=== PATIENT | female | born 1960 | race Caucasian/White ===

== ENCOUNTER 2018-09-05 10:38 | Emergency (ER) | payer BC ==
[2018-09-05 12:33] VITALS: BP 102/63
--- NOTE | 2018-09-05 12:39 | UC ---
Shoulder Pain HPI - HPI Summary HPI Summary: Pt presents with left shoulder pain. States yesterday at work was walking across beam, left hand extended over head holding overhead - slipped - states left shoulder dislocated - he reduced. Pt with persistent pain since. Pt with h/ o left shoulder dislocation. Discomfort since. no paresthesia. no weakness motrin yesterdy RHD Medications reviewed - History of Current Complaint Chief Complaint: UCUpperExtremity Stated Complaint: LT ARM SHOULDER INJURY Time Seen by Provider: 09/05/18 12:39 Hx Obtained From: Patient Pain Intensity: 10 - Allergies/Home Medications Allergies/Adverse Reactions: Allergies Allergy/AdvReac Type Severity Reaction Status Date / Time latex Allergy Unknown LOCAL RASH Verified 09/05/18 12:22 Penicillins Allergy Unknown Swelling Verified 09/05/18 12:22 Sulfa (Sulfonamide Allergy Unknown SWELLING Verified 09/05/18 12:22 Antibiotics) OF FACE LIPS AND TROAT clindamycin Allergy SWELLING Verified 09/05/18 12:22 OF FACE, LIPS AND THROAT enviromental Allergy Unknown Uncoded 09/05/18 12:22 Reaction Details Home Medications: Home Medications Atorvastatin* [Lipitor*] 10 mg PO DAILY 09/05/18 [History Confirmed 09/05/18] Canagliflozin (NF) [Invokana (NF)] 300 mg PO DAILY 09/05/18 [History Confirmed 09/05/18] Insulin GLARGINE(*) [Lantus(*)] 30 units SUBCUT DAILY 09/05/18 [History Confirmed 09/05/18] Levothyroxine TAB* [Synthroid TAB*] 75 mcg PO DAILY 09/05/18 [History Confirmed 09/05/18] Naproxen Sodium [Aleve] 220 mg PO PRN 09/05/18 [History] PMH/Surg Hx/FS Hx/Imm Hx Previously Healthy: Yes Other History Of: Negative For: Anticoagulant Therapy - Surgical History Surgical History: Yes Surgery Procedure, Year, and Place: . ORTHOPEDIC SURGERIES - Family History Known Family History: Positive: Non-Contributory - Social History Occupation: Employed Full-time Lives: With Family Alcohol Use: None Substance Use Type: None Smoking Status (MU): Light Every Day Tobacco Smoker Type: Cigarettes Amount Used/How Often: 6 CIGS A DAY Review of Systems All Other Systems Reviewed And Are Negative: Yes Skin: Positive: Negative Musculoskeletal: Positive: Other: - left shoulder Physical Exam - Summary Physical Exam Summary: Vital Signs Reviewed: Yes A+Ox3, mild discomfort Eyes: Conjunctiva Clear, NIMISHA. EOM intact and full ENT: Hearing grossly normal Neck: Positive: Supple Respiratory: Positive: No respiratory distress, No accessory muscle use + CTA throughout no w/r Cardiovascular: RRR nl s1, s2 no m/r CBT <2 sec 2+ radial/ulnar abd soft + BS nt/nd no guarding, no distension Musculoskeletal Exam: No spinous process pain + TTP anterior rim of left shoulder + full extension, abduction, internal/external rotation with mild discomfort anterior aspec + flex/ext elbow + pronate/supinate Neurological: Positive: Alert, + sensation throughout + deltoid patch 5/5 grasp/thumb up/ a ok Psychological: Positive: Normal Response To Family Skin: Positive: no rash, no ecchymosis Triage Information Reviewed: Yes Vital Signs: Initial Vital Signs Temp 97.8 F 09/05/18 12:26 Pulse 84 09/05/18 12:26 Resp 16 09/05/18 12:26 BP 102/63 09/05/18 12:26 Pulse Ox 98 09/05/18 12:26 Shoulder Course/Dx - Course Course Of Treatment: Pt present with left shoudler pain after reporting a dislocation and reduction at work. Pt with persisnte anterior rim pain RHD VSS distal CSM intact imaging - no acute process sling motrin/apap appt with Dr. Galeana 11:30am today -pt needs wc claim # paperwork complete - Differential Dx/Diagnosis Provider Diagnosis: Shoulder injury Discharge - Sign-Out/Discharge Documenting (check all that apply): Patient Departure All imaging exams completed and their final reports reviewed: Yes - Discharge Plan Condition: Stable Disposition: HOME Prescriptions: Acetaminop/Codeine 30 MG TAB* [Tylenol/Codeine 30 MG TAB*] 1 - 2 tab PO Q6H PRN #6 tab MDD 8 PRN Reason: Severe Pain Patient Education Materials: Rotator Cuff Tendinitis (ED), Calcific Tendinitis (ED) Referrals: Maxwell Galeana MD [Medical Doctor] - (09/05/18 at 9am ) Burak MASONPKathleen [Primary Care Provider] - Additional Instructions: Wear sling for comfort and support. relax your shoulder so the sling holds the weight of your shoulder - Apply heat 20 minues at a time, 2-3 times a day --Okay to alternate ibuprofen (Advil, Motrin) and Tylenol product (Tylenol or tylenol with codeine) every 3 hours for pain. Take with food. Do NOT take for more than 4-5 days. Codeine is a narcotic. Do not drive, drink alcohol, operate machinery, or make financial decisions while taking this medication. Not taking any medication at cause sedation with taking this medication. This medication may cause constipation. Okay to use a stool softener as needed. - You have an appointment tomorrow at 9am with Dr. Galeana - orthopedic provider - tomorrow - Billing Disposition and Condition Condition: STABLE Disposition: Home
--- NOTE | 2018-09-07 16:09 | UC ---
Shoulder Pain HPI - HPI Summary HPI Summary: Pt presents with left shoudler pain x 4 days. Pt states started after gardening. Pt with h/o arthritis and pain in the left shoulder but "not this bad " No popping sounds. States feels like swollen. no warmth, red. Pt has taken motrin/apap with little relief. + alteranate ice/heat No paresthesia, weakness RHD no direct trauma medications reviewed - History of Current Complaint Chief Complaint: UCUpperExtremity Stated Complaint: LT ARM SHOULDER INJURY Time Seen by Provider: 09/05/18 12:39 Hx Obtained From: Patient ?: No Onset/Duration: Gradual Onset, Lasting Days Pain Intensity: 10 Pain Scale Used: 0-10 Numeric - Allergies/Home Medications Allergies/Adverse Reactions: Allergies Allergy/AdvReac Type Severity Reaction Status Date / Time latex Allergy Unknown LOCAL RASH Verified 09/05/18 12:22 Penicillins Allergy Unknown Swelling Verified 09/05/18 12:22 Sulfa (Sulfonamide Allergy Unknown SWELLING Verified 09/05/18 12:22 Antibiotics) OF FACE LIPS AND TROAT clindamycin Allergy SWELLING Verified 09/05/18 12:22 OF FACE, LIPS AND THROAT enviromental Allergy Unknown Uncoded 09/05/18 12:22 Reaction Details Home Medications: Home Medications Atorvastatin* [Lipitor*] 10 mg PO DAILY 09/05/18 [History Confirmed 09/05/18] Canagliflozin (NF) [Invokana (NF)] 300 mg PO DAILY 09/05/18 [History Confirmed 09/05/18] Insulin GLARGINE(*) [Lantus(*)] 30 units SUBCUT DAILY 09/05/18 [History Confirmed 09/05/18] Levothyroxine TAB* [Synthroid TAB*] 75 mcg PO DAILY 09/05/18 [History Confirmed 09/05/18] Naproxen Sodium [Aleve] 220 mg PO PRN 09/05/18 [History] PMH/Surg Hx/FS Hx/Imm Hx Previously Healthy: Yes Cardiovascular History: Hypertension Other History Of: Negative For: Anticoagulant Therapy - Surgical History Surgical History: Yes Surgery Procedure, Year, and Place: . ORTHOPEDIC SURGERIES - Family History Known Family History: Positive: Non-Contributory - Social History Occupation: Employed Full-time Lives: With Family Alcohol Use: None Substance Use Type: None Smoking Status (MU): Light Every Day Tobacco Smoker Type: Cigarettes Amount Used/How Often: 6 CIGS A DAY Review of Systems All Other Systems Reviewed And Are Negative: Yes Skin: Positive: Negative Musculoskeletal: Positive: Other: - left shoulder Physical Exam - Summary Physical Exam Summary: Vital Signs Reviewed: Yes A+Ox3, obvious discomfort with moovement of LUE Eyes: Conjunctiva Clear, NIMISHA. EOM intact and full ENT: Hearing grossly normal TM x 2 clear, mmoist, uvula midline, no exudate, no erythema Neck: Positive: Supple Respiratory: Positive: No respiratory distress, No accessory muscle use + CTA throughout no w/r Cardiovascular: RRR nl s1, s2 no m/r CBT <2 sec 2+ radial, 2+ ulnar abd soft + BS nt/nd no guarding, no distension Musculoskeletal Exam: no spinous process pain + TTP left anterior shoulder with extension to prox bicep + abduction 45 AROM improved to 90 PRMA, extension 60 AROM improved >90 PROM + flex/ext elbow with pain prox bicep + pronate/supinate Neurological: Positive: Alert, + sensation throughout + thumb up, a ok, finger spread, finger cross Psychological: Positive: Normal Response To Family Skin: Positive: no rash, no ecchymosis Triage Information Reviewed: Yes Vital Signs: Initial Vital Signs Temp 97.8 F 09/05/18 12:26 Pulse 84 09/05/18 12:26 Resp 16 09/05/18 12:26 BP 102/63 09/05/18 12:26 Pulse Ox 98 09/05/18 12:26 Diagnostics - Radiology No standard instances Radiology Interpretation Completed By: Radiologist - Patient Name: ARTUR CHAWLA Medical Record#: [id number] Ordering Physician: Kathleen Spear MD Acct.#: [id number] : 1960 Age: 58 Sex: F Location: [facility] Exam Date: 09/05/18 1249 ADM Status: REG ER Order Information: SHOULDER LEFT 2+ VWS Accession Number: [id number] CPT: 72988 Indication: LEFT anterior shoulder pain chronic with progression. Decreased range of motion. Comparison: No relevant prior exams available on the [facility] [place] PACS for comparison. Technique: Internal rotation AP, external rotation Grashey, scapular Y, axillary views LEFT shoulder REPORT AND IMPRESSION: #. No cortical disruption or suspicious trabecular irregularity to suggest fracture. Normal acromioclavicular and glenohumeral joint alignment. #. Mild acromioclavicular and glenohumeral joint osteoarthritis. #. Calcific tendinopathy involving the infraspinatus tendon. #. Potential loose body at the long head biceps tendon sheath. #. Unremarkable soft tissue contours. < Electronically signed by Brian Mart MD in [place]> 09/05/18 1313 Dictated By: Brian Mart MD Dictated Date/Time: 09/05/18 131 Transcribed Date/Time: 1310 Copy to: CC:Kathleen Spear MD; Kathleen Sumner RN [facility] [address] [place] [address] ph ([phone]) ph [phone]) ph ([phone]) This report is only to be considered final once signed by the Provider (s) as displayed in the "<Electronically Signed by >" field (s). Absence of a signature indicates the report is in a draft status and still needs to be finalized. In the event this document was created by someone other than the signing Provider, the individual initiating the document will be listed in the "Entered by:" or "Dictated by:" rutherford. 1 of 1 Shoulder Course/Dx - Course Course Of Treatment: Pt with left anterior shoulder pain - progressive over past 3 days pain anterior joint capsule worse with palpation and arom - improved PROM CSM intact distal suspect tendenitis will xray sling motrin/apap T+C for beditime made f/u wit Dr. Galeana for Fri, 9am comfort and agreement with plan - Differential Dx/Diagnosis Provider Diagnosis: Shoulder injury Discharge - Sign-Out/Discharge Documenting (check all that apply): Patient Departure All imaging exams completed and their final reports reviewed: Yes - Discharge Plan Condition: Stable Disposition: HOME Prescriptions: Acetaminop/Codeine 30 MG TAB* [Tylenol/Codeine 30 MG TAB*] 1 - 2 tab PO Q6H PRN #6 tab MDD 8 PRN Reason: Severe Pain Patient Education Materials: Rotator Cuff Tendinitis (ED), Calcific Tendinitis (ED) Referrals: Maxwell Galeana MD [Medical Doctor] - (09/05/18 at 9am ) Kathleen Villanueva RN [Primary Care Provider] - Additional Instructions: Wear sling for comfort and support. relax your shoulder so the sling holds the weight of your shoulder - Apply heat 20 minues at a time, 2-3 times a day --Okay to alternate ibuprofen (Advil, Motrin) and Tylenol product (Tylenol or tylenol with codeine) every 3 hours for pain. Take with food. Do NOT take for more than 4-5 days. Codeine is a narcotic. Do not drive, drink alcohol, operate machinery, or make financial decisions while taking this medication. Not taking any medication at cause sedation with taking this medication. This medication may cause constipation. Okay to use a stool softener as needed. - You have an appointment tomorrow at 9am with Dr. Galeana - orthopedic provider - tomorrow - Billing Disposition and Condition Condition: STABLE Disposition: Home
== END 2018-09-05 13:45 | disposition home or self-care (01) ==
LOC: UCCORT 10:38
DX: S49.92XA Unspecified injury of left shoulder and upper arm, initial encounter (principal); F17.210 Nicotine dependence, cigarettes, uncomplicated; Z88.1 Allergy status to other antibiotic agents; Z91.040 Latex allergy status; Z88.0 Allergy status to penicillin; Z91.09 Other allergy status, other than to drugs and biological substances; X50.0XXA Overexertion from strenuous movement or load, initial encounter; Y92.9 Unspecified place or not applicable
CPT/HCPCS: 99213; G0463

== ENCOUNTER 2018-11-23 14:37 | Emergency (ER) | payer BC ==
--- NOTE | 2018-11-23 15:17 | ED ---
Lower Extremity - HPI Summary HPI Summary: Pt. is a 58 y.o female who presents to the ER for left ankle pain and swelling x 4 days. Patient states she has stratus and left ankle and is also broken a few times. Patient states is not uncommon for her to have pain to the ankle but she states he usually improves with ibuprofen. Patient does not recall any specific injuries or falls but does note she was pushing a heavy wheelbarrow in her bare feet a few days ago. Patient denies fever, chills, wounds, redness. Symptoms are mild in severity. Walking makes symptoms worse. Nothing makes symptoms better. - History of Current Complaint Chief Complaint: EDExtremityLower Stated Complaint: "LEFT ANKLE PAIN PER PT" Time Seen by Provider: 11/23/18 14:49 Hx Obtained From: Patient Pain Intensity: 7 - Allergies/Home Medications Allergies/Adverse Reactions: Allergies Allergy/AdvReac Type Severity Reaction Status Date / Time latex Allergy Unknown LOCAL RASH Verified 11/23/18 14:46 Penicillins Allergy Unknown Swelling Verified 11/23/18 14:46 Sulfa (Sulfonamide Allergy Unknown SWELLING Verified 11/23/18 14:46 Antibiotics) OF FACE LIPS AND TROAT clindamycin Allergy SWELLING Verified 11/23/18 14:46 OF FACE, LIPS AND THROAT enviromental Allergy Unknown Uncoded 09/05/18 12:22 Reaction Details PMH/Surg Hx/FS Hx/Imm Hx Previously Healthy: Yes Endocrine/Hematology History: Reports: Hx Diabetes, Hx Thyroid Disease Denies: Hx Anticoagulant Therapy Cardiovascular History: Reports: Hx Hypertension Denies: Hx Pacemaker/ICD Respiratory History: Denies: Hx Asthma, Hx Chronic Obstructive Pulmonary Disease (COPD) History: Denies: Hx Renal Disease Sensory History: Denies: Hx Contacts or Glasses Opthamlomology History: Denies: Hx Contacts or Glasses Neurological History: Denies: Hx Dementia, Hx Seizures Psychiatric History: Denies: Hx Substance Abuse - Cancer History Hx Chemotherapy: No Hx Radiation Therapy: No - Surgical History Surgery Procedure, Year, and Place: . ORTHOPEDIC SURGERIES Infectious Disease History: No Infectious Disease History: Reports: Hx Shingles Denies: Hx Hepatitis, Hx Human Immunodeficiency Virus (HIV), Traveled Outside the [place] in Last 30 Days - Family History Known Family History: Positive: Non-Contributory - Social History Occupation: Employed Full-time Lives: With Family Alcohol Use: None Substance Use Type: Reports: None Smoking Status (MU): Light Every Day Tobacco Smoker Type: Cigarettes Amount Used/How Often: 6 CIGS A DAY Review of Systems Constitutional: Negative Negative: Fever, Chills Positive: Other - Left ankle pain and swelling Skin: Negative Neurological: Negative All Other Systems Reviewed And Are Negative: Yes Physical Exam Triage Information Reviewed: Yes Vital Signs On Initial Exam: Initial Vitals Temp Pulse Resp BP Pulse Ox 96.7 F 86 16 141/88 95 11/23/18 14:43 11/23/18 14:43 11/23/18 14:43 11/23/18 14:43 11/23/18 14:43 Vital Signs Reviewed: Yes Appearance: Positive: Well-Appearing - Pt. lying in bed in NAD. Skin: Positive: Warm, Dry Head/Face: Positive: Normal Head/Face Inspection Eyes: Positive: Normal, EOMI, NIMISHA Neck: Positive: Supple Musculoskeletal: Positive: Other - Mild diffuse edema to left ankle. ROM decreased secondary to pain but pt. able to flex and extend. No overlying erythema, wounds. No calf pain or swelling. Neurological: Positive: Normal, CN Intact II-III Psychiatric: Positive: Affect/Mood Appropriate Diagnostics - Vital Signs Vital Signs Temp Pulse Resp BP Pulse Ox 11/23/18 14:43 96.7 F 86 16 141/88 95 - Laboratory Lab Statement: Any lab studies that have been ordered have been reviewed, and results considered in the medical decision making process. Lower Extremity Course/Dx - Course Course Of Treatment: Pt. presenting with exacerbation of chronic ankle pain. Xray shows likely small effusion and chronic changes without other acute findings, per radiology. Air splint placed for comfort. Pt. to ice and elevate. NSAIDS as directed. WIll f.u with her orthopedic physician. Work excuse given. Pt. understands and agrees with plan. - Diagnoses Differential Diagnosis/HQI/PQRI: Positive: Arthritis, Contusion, Fracture ( Closed), Sprain, Strain Provider Diagnoses: Ankle sprain Discharge - Sign-Out/Discharge Documenting (check all that apply): Patient Departure Patient Received Moderate/Deep Sedation with Procedure: No - Discharge Plan Condition: Good Disposition: HOME Patient Education Materials: Ankle Sprain (ED) Forms: *Work Release Referrals: Anitha Arreola MD [Medical Doctor] - Kathleen Villanueva RN [Primary Care Provider] - Additional Instructions: Call Dr. Arreola's office on Sunday to schedule an appointment Ice and elevate Wear splint for comfort NSAIDs for pain as directed Return to ER if symptoms change or worsen - Billing Disposition and Condition Condition: GOOD Disposition: Home
[2018-11-23 16:20] VITALS: BP 138/84
== END 2018-11-23 16:18 | disposition home or self-care (01) ==
LOC: ED 14:37
DX: S93.402A Sprain of unspecified ligament of left ankle, initial encounter (principal); X58.XXXA Exposure to other specified factors, initial encounter; Y92.9 Unspecified place or not applicable; E11.9 Type 2 diabetes mellitus without complications; I10 Essential (primary) hypertension; F17.210 Nicotine dependence, cigarettes, uncomplicated; Z88.0 Allergy status to penicillin; Z88.2 Allergy status to sulfonamides; Z88.1 Allergy status to other antibiotic agents; Z91.040 Latex allergy status; M19.072 Primary osteoarthritis, left ankle and foot
CPT/HCPCS: 99282